=== PATIENT | female | born 1990 | race Caucasian/White ===

== ENCOUNTER 2018-06-18 22:25 | Emergency (ER) | payer BC ==
[2018-06-18 22:30] VITALS: RESP 18
[2018-06-18] MEDS ORDERED: LIDOCAINE 1% INJ 10MG/ML (20 ML MDV) SQ ONE (23:43)
[2018-06-18] MEDS ORDERED: DIPH,PERTUS(ACELL)TETVAC-LF 0.5 ML VIAL IM ONE (23:43)
--- NOTE | 2018-06-19 01:00 | ED ---
Wound/Laceration HPI - General Chief Complaint: Wound/Laceration Stated Complaint: finger lac Time Seen by Provider: 06/18/18 23:28 Source: patient Mode of arrival: ambulatory Limitations: no limitations - History of Present Illness Initial Comments: 27-year-old female patient presents to the emergency department today for evaluation of laceration to the left finger. Patient states approximately 30 minutes prior to arrival she broke a wine glass went to pick it up without looking and accidentally cut her finger. She denies any numbness or tingling to the finger. Denies any difficulty with range of motion. Patient is unsure when her last tetanus vaccine was given. Denies any other injuries. Patient denies any headache, neck pain, back pain, chest pain, shortness of breath, dizziness, weakness, abdominal pain, nausea, vomiting, or difficulties with bowel movements or urination. - Related Data Home Medications Medication Instructions Recorded Confirmed Norgestimate-Ethinyl Estradiol 1 tab PO DAILY 02/16/16 02/18/16 [Ortho Tri-Cyclen 28 Tablet] Previous Rx's Medication Instructions Recorded Ibuprofen [Motrin] 600 mg PO Q6HR PRN #60 tab 09/29/14 Acetaminophen-Codeine 300-30mg 1 tab PO Q4H PRN #30 tablet 02/18/16 [Tylenol #3] Allergies Allergy/AdvReac Type Severity Reaction Status Date / Time No Known Allergies Allergy Verified 06/18/18 22:30 Review of Systems ROS Statement: Those systems with pertinent positive or pertinent negative responses have been documented in the HPI. ROS Other: All systems not noted in ROS Statement are negative. Past Medical History Past Medical History: No Reported History Additional Past Medical History / Comment(s): Ovarian cysts History of Any Multi-Drug Resistant Organisms: None Reported Past Surgical History: Orthopedic Surgery Additional Past Surgical History / Comment(s): LAPAROTOMY, with evacuation of hemoperitoneum and repair of right ovary in September 2014 Past Anesthesia/Blood Transfusion Reactions: Motion Sickness, Postoperative Nausea & Vomiting (PONV) Past Psychological History: No Psychological Hx Reported Smoking Status: Current every day smoker Past Alcohol Use History: Occasional Past Drug Use History: None Reported - Past Family History Father Family Medical History: No Reported History Mother Family Medical History: No Reported History General Exam Limitations: no limitations General appearance: alert, in no apparent distress, other (This is a well- developed, well-nourished adult female patient in no acute distress. Vital signs upon presentation are temperature 97.7F, pulse 74, respirations 18, blood pressure 178/62, pulse ox 99% on room air.) Eye exam: Present: normal appearance, PERRL, EOMI. Absent: scleral icterus, conjunctival injection, periorbital swelling ENT exam: Present: normal exam, normal oropharynx, mucous membranes moist Respiratory exam: Present: normal lung sounds bilaterally. Absent: respiratory distress, wheezes, rales, rhonchi, stridor Cardiovascular Exam: Present: regular rate, normal rhythm, normal heart sounds. Absent: systolic murmur, diastolic murmur, rubs, gallop, clicks Extremities exam: Present: full ROM (Full range of motion of the left little finger with an without resistance), normal capillary refill, other (There is a 2 cm laceration noted to the palmar aspect of the distal left little finger, this extends into the left lateral little finger. No evidence of tendon exposure. Skin is otherwise pink, warm, and dry. Cap refills less than 3 seconds. Radial pulses 2+ and equal bilaterally.). Absent: normal inspection, tenderness, pedal edema, joint swelling, calf tenderness Neurological exam: Present: alert, oriented X3, CN II-XII intact Psychiatric exam: Present: normal affect, normal mood Skin exam: Present: warm, dry, intact, normal color. Absent: rash Course Vital Signs 06/18/18 06/19/18 22:28 01:12 Temperature 97.7 F 98.0 F Pulse Rate 74 58 L Respiratory 18 18 Rate Blood Pressure 128/62 112/64 O2 Sat by Pulse 99 98 Oximetry Procedures - Laceration Laceration #1 Consent Obtained: verbal consent Time Out Performed: Yes Indication: laceration Site: hand (Left little finger) Size (cm): 2 Description: linear Depth: simple, single layer Anesthetic Used: lidocaine 1% Anesthesia Technique: nerve block Amount (mls): 3 Pre-repair: irrigated extensively Type of Sutures: nylon Size of Sutures: 5-0 Number of Sutures: 5 Technique: simple, interrupted Medical Decision Making - Medical Decision Making 27-year-old female patient presented to the emergency department today for evaluation of laceration to the left little finger. Physical examination did reveal a 2 cm laceration to the palmar aspect of the left distal little finger that extended onto the lateral finger. Patient has full range of motion against resistance. Neurovascular status is intact. Laceration was repaired as documented. Laceration was irrigated extensively there is no sign of foreign body. Patient was instructed to return in 7 days for suture removal. She is instructed to follow-up with her primary care physician for recheck in 1- 2 days. She is instructed to follow-up with orthopedics if she begins to have difficulty with mobility of the finger. She was educated regarding wound care and signs or symptoms of infection. Return parameters were discussed in detail. She verbalizes understanding and agrees with this plan. - Lab Data Lab Results 06/18/18 Range/Units 23:51 Urine HCG, Qual Not Detected (Not Detectd) Disposition Clinical Impression: Finger laceration Disposition: HOME SELF-CARE Condition: Good Instructions: Care For Your Stitches (ED), Finger Laceration (ED) Additional Instructions: Keep wound clean and dry. Return in 7 days for removal of stitches. Monitor for signs or symptoms of infection including but not limited to redness, swelling, drainage of pus, fever, or chills. Use splint while working. Keep open to air while at home and resting. Follow-up with orthopedics if you start to have trouble with mobility. Return here immediately for any new, worsening, or concerning symptoms. Is patient prescribed a controlled substance at d/c from ED?: No Referrals: None,Stated [Primary Care Provider] - 1-2 days Elian Zuniga DO [Doctor of Osteopathic Medicine] - 1-2 days Time of Disposition: 01:00
[2018-06-19 01:14] VITALS: BP 112/64; PULSE 58; TEMP 98
== END 2018-06-19 01:13 | disposition home or self-care (01) ==
LOC: EC 22:25
DX: S61.217A Laceration without foreign body of left little finger without damage to nail, initial encounter (principal); F17.200 Nicotine dependence, unspecified, uncomplicated; Z23 Encounter for immunization; Z79.3 Long term (current) use of hormonal contraceptives; W25.XXXA Contact with sharp glass, initial encounter
CPT/HCPCS: 81025; 90715; 99283; 12001; 90471; J2001

== ENCOUNTER → 2018-11-14 | Outpatient (CLI) | payer BC ==
[2018-11-14 09:27] LABS: HCT 38.7 % (34.0-46.0); HGB 13.2 gm/dL (11.4-16.0); MCH 31.3 pg (25.0-35.0); MCHC 34.1 g/dL (31.0-37.0); MCV 91.8 fL (80.0-100.0); Mean Platelet Volume 7.5; Platelet Count 236 k/uL (150-450); RBC 4.22 m/uL (3.80-5.40); RDW 12.3 % (11.5-15.5); WBC 8.6 k/uL (3.8-10.6)
[2018-11-14 09:42] LABS: Glucose 64 mg/dL (74-99)
--- NOTE | 2018-11-14 16:37 | US ---
EXAMINATION TYPE: Transabdominal DATE OF EXAM: 01/22/18 COMPARISON: NONE CLINICAL HISTORY: Z36 CONFIRM DATES. Dates, first ultrasound for this . Hx of miscarriage. EXAM PERFORMED: Transvaginal (TV) and Transabdominal (TA) EXAM MEASUREMENTS: GESTATIONAL AGE / DATING Dates by LMP: ( 7 weeks/4 days) EDC: 06/29/2019 Dates by Current Scan: (7 weeks/2 days) EDC: 07/01/2019 MATERNAL ANATOMY Uterus: 7.8 x 7.2 x 5.0 cm Right Ovary: 3.8 x 2.8 x 3.2 cm Left Ovary: 3.6 x 2.3 x 2.4 cm Post CDS / Adnexa: no free fluid, prominent vessels seen Presence of free fluid: no Presence of corpus luteal cyst: bilateral ovarian lesions identified. Right ovary- Hypoechoic lesion with through transmission - 2.5 x 2.1 x 1.8 cm. Left ovary- Hypoechoic lesion seen with peripheral vascular flow - 2.2 x 2.0 x 1.8 cm Presence of subchorionic bleed: hypoechoic area seen in fundal region - 1.8 x 2.3 x 0.4 cm GESTATION / SURVEY CRL: 1.2 cm (7 weeks/2 days) MSD: seen, not measured Yolk Sac (normal less than 6mm): 2.7 mm Heart Rate: 151 bpm Rhythm: Normal IUP: Viable IUP Date of LMP: 09/22/2018, Beta HcG (if available): Not available at this time Single live IUP measuring 7 weeks 2 days. Visible internal echos seen within gestational sac. IMPRESSION: 1. Single intrauterine gestation estimated at 7 weeks 2 days gestation. Cardiac activity measures 151 bpm. 2. Subchorionic hemorrhage
[2018-11-14 18:17] LABS: HIV 1 AB Non-Reactive (Non-Reactive); HIV AB P24 Non-Reactive (Non-Reactive); HIV P24 AG Non-Reactive (Non-Reactive)
[2018-11-15 07:13] LABS: Toxoplasma Antibody (IgG) <3.0 IU/mL (<7.2); Toxoplasma Antibody (IgM) <3.0 AU/mL (<8.0)
== END | disposition home or self-care (01) ==
LOC: RADUSWWP 08:09
PROVIDERS: ATTEND Obstetrics & Gynecology
DX: O46.8X1 Other antepartum hemorrhage, first trimester (principal); Z3A.01 Less than 8 weeks gestation of pregnancy
CPT/HCPCS: 76801; 76817; 82565; 82947; 85027; 86762; 86777; 86778; 86780; 86850; 86900; 86901; 87340; 87390

== ENCOUNTER 2019-05-14 14:39 | Inpatient (IN) | payer BC ==
[2019-05-14] MEDS: LACTATED RINGERS 1,000 ML IV SCH ×5 (15:30→19:28)
[2019-05-14 15:52] LABS: Appearance,Urine Cloudy (Clear); Bacteria,Urine Occasional /hpf; Bilirubin,Urine Negative (Negative); Blood,Urine Negative (Negative); Color,Urine Yellow; Glucose,Urine (UA) Negative (Negative); Ketones,Urine Trace (Negative); Leukocyte Esterase,Urine Large (Negative); Mucus,Urine Moderate /hpf; Nitrite,Urine Positive (Negative); Protein,Urine 1+ (Negative); RBC,Urine 2 /hpf (0-5); Specific Gravity,Urine 1.022 (1.001-1.035); Squamous Epithelial Cell,Urine 4 /hpf (0-4); WBC,Urine 57 /hpf (0-5)
[2019-05-14] MEDS ORDERED: CALCIUM GLUCONATE 1 GM/10 ML VIAL IV PRN (17:01)
[2019-05-14] MEDS ORDERED: MAGNESIUM SULFATE-WATER PMX 4 GM in WATER FOR INJECTION 1 100ML.BAG IVPB ONE (17:01)
[2019-05-14] MEDS: BETAMET ACET-BETAMETH SOD PHOS 6 MG/ML VIAL IM SCH (17:05)
--- NOTE | 2019-05-14 17:08 | P.HPOB ---
History of Present Illness H&P Date: 05/14/19 Chief Complaint: Intrauterine at 33 weeks: labor: UTI Rosa M is a 20-year-old at 33 weeks 3 days gestation who ryes complaining of contractions and possible leaking of fluid. An Essure was negative, but she was dilated to 1 cm and 60% effaced. A fibrin once that and was positive. She continues to have contractions every approximately 3-5 minutes and while she is not made cervical change in the last hour she is continuing of crack contractions she is regular and 8 out of 10 on the pain scale and they seem to be increasing. We'll plan to provide IM steroids for lung maturity, start IV antibiotics for her bladder infection, and initiated make sulfate for tocolyse this. Risks/benefits of above were reviewed with patient in detail including risks of next sulfate and symptoms of what mag sulfate can do. She is aware risks including mag toxicity potential difficulty in breathing and potential need for transfer of care as she is only 33 weeks and should we failed to stop her labor she'll need to be transferred. Plan will be to do a mag level in 8-10 hours and discontinued medication as soon as feasible. Plan to repeat steroid dose in 24 hours as well. 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 On physical exam vital signs are stable and afebrile. Heart regular, lungs clear, extremities without pain. Abdomen soft nontender. A category 1 tracing is noted and contractions are noted every 3-5 minutes. Pelvic exam as above. Pike assessment intrauterine at 33 weeks. Plan tocolyse this, I am steroids and possible transfer of care if needed. Past Medical History Past Medical History: No Reported History Additional Past Medical History / Comment(s): Ovarian cysts History of Any Multi-Drug Resistant Organisms: None Reported Past Surgical History: Orthopedic Surgery Additional Past Surgical History / Comment(s): LAPAROTOMY, with evacuation of hemoperitoneum and repair of right ovary in September 2014 Past Anesthesia/Blood Transfusion Reactions: Motion Sickness, Postoperative Nausea & Vomiting (PONV) Smoking Status: Never smoker - Past Family History Father Family Medical History: No Reported History Mother Family Medical History: No Reported History Medications and Allergies Home Medications Medication Instructions Recorded Confirmed Type Pnv No.95/Ferrous Fum/Folic AC 1 tab PO DAILY 05/14/19 05/14/19 History [ Multivitamin Tablet] Allergies Allergy/AdvReac Type Severity Reaction Status Date / Time No Known Allergies Allergy Verified 06/18/18 22:30 Exam Osteopathic Statement: *. No significant issues noted on an osteopathic structural exam other than those noted in the History and Physical/Consult. Vital Signs Temp Pulse Resp BP 05/14/19 15:20 97.9 F 94 14 116/66 Intake and Output 05/14/19 05/14/19 05/14/19 06:59 14:59 22:59 Other: Weight 72.575 kg Results Abnormal Lab Results - Last 24 Hours (Table) 05/14/19 Range/Units 15:23 Urine Appearance Cloudy H (Clear) Urine Protein 1+ H (Negative) Urine Ketones Trace H (Negative) Urine Nitrite Positive H (Negative) Ur Leukocyte Esterase Large H (Negative) Urine WBC 57 H (0-5) /hpf Urine Bacteria Occasional H (None) /hpf Urine Mucus Moderate H (None) /hpf
[2019-05-14] MEDS: MAGNESIUM SULFATE-WATER PMX 20 GM in WATER FOR INJECTION 1 500ML.BAG IV SCH (17:43)
[2019-05-14 18:28] VITALS: BMI 22.9
[2019-05-14] MEDS ORDERED: ACETAMINOPHEN TAB 500 MG TAB PO PRN (22:20)
[2019-05-14] MEDS ORDERED: BUTORPHANOL 1 MG/ML 1 ML VIAL IV PRN (22:20)
[2019-05-15] MEDS: MAGNESIUM SULFATE-WATER PMX 20 GM in WATER FOR INJECTION 1 500ML.BAG IV SCH (03:46)
--- NOTE | 2019-05-15 08:11 | P.PN ---
Progress Note - Text Progress Note Date: 05/15/19 Rosa M seen and evaluated. She relates that the contraction pain and symptoms have decreased significantly and have spaced out. She was able to get some rest last night. She is feeling the effects of an exophytic this morning indicating is likely a therapeutic level at this time. As contractions have spaced out and she is not taking any cervical change plan to decrease the mag sulfate to 1 g per hour with expectation to turned off later today and to try and get her second dose of Celestone and that hopefully discharge her to home later this evening if she is remaining stable. We'll review with Dr. Brown who is on-call for our group today. All the questions were answered for her she has category 1 tracing and contractions are anywhere from 8-10 minutes apart and are of less intensity.
[2019-05-15 16:10] VITALS: BP 101/61; PULSE 85; RESP 16; TEMP 98.2
[2019-05-15] MEDS: BETAMET ACET-BETAMETH SOD PHOS 6 MG/ML VIAL IM SCH (17:04)
== END 2019-05-15 17:15 | disposition home or self-care (01) | DRG 832 ==
LOC: FBPOP 14:39 → 4FBP 18:08
PROVIDERS: ADMIT Obstetrics & Gynecology; ATTEND Obstetrics & Gynecology
DX: O60.03 Preterm labor without delivery, third trimester (principal); O23.13 Infections of bladder in pregnancy, third trimester; Z3A.33 33 weeks gestation of pregnancy; Z79.899 Other long term (current) drug therapy
CPT/HCPCS: 59025; 81001; 82731; 83735; 84112; 87077; 87086; 87186; 96361; 96365; 99215

== ENCOUNTER 2019-06-05 13:26 | Outpatient (CLI) | payer BC ==
[2019-06-05 15:13] VITALS: BP 107/57; PULSE 80; RESP 16; TEMP 97.3
--- NOTE | 2019-06-05 18:59 | P.MSEPDOC ---
Presenting Problems - Arrival Data Date of Arrival on Unit: 06/05/19 Time of Arrival on Unit: 13:26 Mode of Transport: Ambulatory - Complaint OB-Reason for Admission/Chief Complaint: Possible Onset of Labor Medical History - Information : 3 Para: 1 Term: 0 : 0 Abortions: Spontaneous or Elective: 1 Number of Living Children: 1 - Gestational Age Gestational Age by PERLITA (wks/days): 36 Weeks and 4 Days Review of Systems - Review of Systems Constitutional: No problems Breast: No problems ENT: No problems Cardiovascular: No problems Respiratory: No problems Gastrointestinal: No problems Genitourinary: No problems Musculoskeletal: No problems Neurological: No problems Skin: No problems Vital Signs - Temperature Temperature: 97.3 F Temperature Source: Temporal Artery Scan - Pulse Right Sitting Pulse Rate: 80 Pulse Assessment Method: Automatic Cuff - Respirations Respiratory Rate: 16 Oxygen Delivery Method: Room Air - Blood Pressure Right Arm Blood Pressure: 107/57 Blood Pressure Mean: 73 Blood Pressure Source: Automatic Cuff Medical Screen Scoring (Pre) - Cervical Exam Dilation: 1-3 cm = 1 Membranes: Intact - Uterine Contractions Frequency: > or = 36 weeks =2 Duration: > 40 seconds = 2 - Maternal Vital Signs Maternal Temperature: N/A Maternal Blood Pressure: N/A Signs of Preeclampsia: N/A Maternal Respirations: N/A - Assessment - Baby A Baseline FHR: 135 Heart Rate - NICHD Category: Category I (Normal) = 0 NST: Reactive Position: N/A - Total Score - Baby A Total Score - Baby A: 5 - Total Score - Baby B Total Score - Baby B: 5 - Total Score - Baby C Total Score - Baby C: 5 - Level of Risk - Baby A Level of Risk - Baby A: Low (0-5) - Level of Risk - Baby B Level of Risk - Baby B: Low (0-5) - Level of Risk - Baby C Level of Risk - Baby C: Low (0-5) Physician Notification (Pre) - Physician Notified Physician Notified Date: 06/05/19 Physician Notified Time: 14:50 Physician/Practitioner Notifed:: Cheryl Billy Order Received: Yes (d/c home) Disposition - Disposition OB Disposition: Discharge to home Discharge Date: 06/05/19 Discharge Time: 14:52 I agree with the RN Medical Screening Exam: Yes Risk & Benefit of care provided described in d/c instruction: Yes Diagnosis: FALSE LABOR BEFORE 37 COMPLETED WEEKS OF GEST, THIRD TRI (Patient presented to triage with complaints of pelvic discomfort and pressure for approximately 1 week also had some contractions today after having intercourse. Patient is just over 36 weeks. Cervix is 1-2 cm without significant change from the office. heart tones are reactive without decelerations. Contractions are most likely secondary to her recent intercourse. Patient's felt to be stable for discharge home follow up with me as scheduled. She will return if any decreased movement, vaginal bleeding, increased frequency of contractions, and/or other concerns. There is no evidence of any maternal or compromise at this time.)
== END 2019-06-05 14:52 | disposition home or self-care (01) ==
LOC: FBPOP 13:26
PROVIDERS: ATTEND Obstetrics & Gynecology
DX: O47.03 False labor before 37 completed weeks of gestation, third trimester (principal); Z3A.36 36 weeks gestation of pregnancy
CPT/HCPCS: 59025; 99213

== ENCOUNTER 2019-06-07 11:10 | Outpatient (CLI) | payer BC ==
[2019-06-07 12:21] LABS: Appearance,Urine Clear (Clear); Bilirubin,Urine Negative (Negative); Blood,Urine Negative (Negative); Color,Urine Yellow; Glucose,Urine (UA) Negative (Negative); Ketones,Urine Trace (Negative); Leukocyte Esterase,Urine Negative (Negative); Nitrite,Urine Negative (Negative); PH, Urine 7.5 (5.0-8.0); Protein,Urine Negative (Negative); Specific Gravity,Urine 1.013 (1.001-1.035); Urobilinogen,Urine <2.0 mg/dL (<2.0)
[2019-06-07 12:46] VITALS: BP 124/66; PULSE 72; RESP 16; TEMP 97.7
--- NOTE | 2019-06-08 22:09 | P.MSEPDOC ---
Presenting Problems - Arrival Data Date of Arrival on Unit: 06/07/19 Time of Arrival on Unit: 11:10 Mode of Transport: Ambulatory - Complaint OB-Reason for Admission/Chief Complaint: Rule Out PROM Comment: Clear fluid at 0945 Medical History - Information : 3 Para: 1 Term: 1 : 0 Abortions: Spontaneous or Elective: 1 Number of Living Children: 1 - Gestational Age Gestational Age by PERLITA (wks/days): 36 Weeks and 6 Days Review of Systems - Review of Systems Constitutional: No problems Breast: No problems ENT: No problems Cardiovascular: No problems Respiratory: No problems Gastrointestinal: No problems Genitourinary: No problems Musculoskeletal: No problems Neurological: No problems Skin: No problems Vital Signs - Temperature Temperature: 97.7 F Temperature Source: Temporal Artery Scan - Pulse Right Sitting Brachial Pulse Rate: 72 Pulse Assessment Method: Automatic Cuff - Respirations Respiratory Rate: 16 Oxygen Delivery Method: Room Air O2 Sat by Pulse Oximetry: 97 - Blood Pressure Right Arm Sitting Blood Pressure: 124/66 Blood Pressure Mean: 85 Blood Pressure Source: Automatic Cuff Medical Screen Scoring (Pre) - Cervical Exam Dilation: 1-3 cm = 1 Membranes: Intact - Uterine Contractions Frequency: > 5 minutes apart = 1 Duration: N/A Intensity: N/A - Maternal Vital Signs Maternal Temperature: N/A Maternal Blood Pressure: N/A Signs of Preeclampsia: N/A Maternal Respirations: N/A - Maternal Trauma Maternal Trauma: N/A - Assessment - Baby A Baseline FHR: 120 Heart Rate - NICHD Category: Category I (Normal) = 0 NST: Reactive Position: N/A Station: N/A - Total Score - Baby A Total Score - Baby A: 2 - Total Score - Baby B Total Score - Baby B: 2 - Total Score - Baby C Total Score - Baby C: 2 - Level of Risk - Baby A Level of Risk - Baby A: Low (0-5) - Level of Risk - Baby B Level of Risk - Baby B: Low (0-5) - Level of Risk - Baby C Level of Risk - Baby C: Low (0-5) Physician Notification (Pre) - Physician Notified Physician Notified Date: 06/07/19 Physician Notified Time: 12:30 Physician/Practitioner Notifed:: Allan Spoke With: Allan New Order Received: Yes - Notification Comment Comment: Aarti c\Dr. Lemus, advsd , 36 03/28, c/o possible SROM at 0945, suprapubic pressure, UA WNL with the exception of trace Ketones, two negative amnisures, blue pad dry, reactive NST, washcloth pt had between legs smells of urine and verified by second nurse. States to d/c home, triage instructions, follow up as scheduled. Disposition - Disposition OB Disposition: Discharge to home, Written follow up instructions reviewed Discharge Date: 06/07/19 Discharge Time: 12:35 I agree with the RN Medical Screening Exam: Yes Risk & Benefit of care provided described in d/c instruction: Yes Diagnosis: FALSE LABOR AT OR AFTER 37 COMPLETED WEEKS OF GESTATION
== END 2019-06-07 12:35 | disposition home or self-care (01) ==
LOC: FBPOP 11:10
PROVIDERS: ATTEND Obstetrics & Gynecology
DX: O47.1 False labor at or after 37 completed weeks of gestation (principal); Z3A.36 36 weeks gestation of pregnancy
CPT/HCPCS: 59025; 81003; 84112; 99213

== ENCOUNTER 2019-06-11 15:22 | Outpatient (CLI) | payer BC ==
--- NOTE | 2019-06-11 16:31 | US ---
EXAMINATION TYPE: US OB limited DATE OF EXAM: 06/11/2019 COMPARISON: OB < 14 wks CLINICAL HISTORY: STAN. STAN, pt states feeling of leaking fluid EXAM PERFORMED: Transabdominal (TA) GESTATIONAL AGE / DATING Physician Established: (37 weeks/3 days) EDC: 06/29/2019 No growth performed on today?s study per ordering physician SURVEY STAN: 10.6 cm 1st measurement, 9.8 cm 2nd measurement HEART RATE: 116 bpm RHYTHM: Normal Results given to TEE Willingham in L&D at time of exam IMPRESSION: Limited survey.
[2019-06-11 16:50] VITALS: BP 107/55; PULSE 86; RESP 14; TEMP 98.1
--- NOTE | 2019-07-03 17:42 | P.MSEPDOC ---
Presenting Problems - Arrival Data Date of Arrival on Unit: 06/11/19 Time of Arrival on Unit: 15:30 Mode of Transport: Portable Vital Signs - Temperature Temperature: 98.1 F Temperature Source: Oral - Pulse Right Brachial Pulse Rate: 86 Pulse Assessment Method: Automatic Cuff - Respirations Respiratory Rate: 14 Oxygen Delivery Method: Room Air - Blood Pressure Right Arm Blood Pressure: 107/55 Blood Pressure Mean: 72 Blood Pressure Source: Automatic Cuff Medical Screen Scoring (Post) - Cervical Exam Dilation: 1-3 cm = 1 - Uterine Contractions Frequency: N/A Duration: N/A Intensity: N/A - Maternal Vital Signs Maternal Temperature: N/A Maternal Blood Pressure: N/A Signs of Preeclampsia: N/A Maternal Respirations: N/A - Pain Assessment Pain Scale Used: Numeric (1 - 10) Pain Intensity: 0 - Maternal Trauma Maternal Trauma: N/A - Assessment - Baby A Heart Rate: 135 Heart Rate - NICHD Category: Category I (Normal) = 0 NST: Reactive Position: N/A Station: N/A - Total Score Total Score - Baby A: 1 Total Score - Baby B: 1 Total Score - Baby C: 1 - Post Treatment Level of Risk Post Treatment Level of Risk - Baby A: Low (0-5) Post Treatment Level of Risk - Baby B: Low (0-5) Post Treatment Level of Risk - Baby C: Low (0-5) Physician Notification (Post) - Physician Notified Physician Notified Date: 06/11/19 Physician Notified Time: 16:24 Physician/Practitioner Notified:: radha Spoke With: radha New Order Received: Yes - Notification Comment Comment: pt sent from office for nst and hayde r/t pt reporting leaking of fluid. nst reactive, hayde 9.8-10.8 amnisure negative . pt may be discharged home Disposition - Disposition OB Disposition: Discharge to home Discharge Date: 06/11/19 Discharge Time: 16:50 I agree with the RN Medical Screening Exam: No Physician's MSE Comment: There is incomplete documentation on this by nursing staff and therefore cannot agree to it. Risk & Benefit of care provided described in d/c instruction: No Diagnosis: RELATED CONDITIONS, UNSP, UNSPECIFIED TRIMESTER
== END 2019-06-11 16:51 | disposition home or self-care (01) ==
LOC: FBPOP 15:22
PROVIDERS: ATTEND Obstetrics & Gynecology
DX: O26.93 Pregnancy related conditions, unspecified, third trimester (principal); Z3A.37 37 weeks gestation of pregnancy
CPT/HCPCS: 59025; 76815; 84112; 99213

== ENCOUNTER 2019-06-15 20:17 | Outpatient (CLI) | payer BC ==
[2019-06-15 21:47] VITALS: BP 122/72; PULSE 94; RESP 16; TEMP 97.9
--- NOTE | 2019-06-25 07:48 | P.MSEPDOC ---
Presenting Problems - Arrival Data Date of Arrival on Unit: 06/15/19 Time of Arrival on Unit: 20:17 Mode of Transport: Ambulatory - Complaint OB-Reason for Admission/Chief Complaint: Possible Onset of Labor Comment: Pt claims contractions are 1-2 mins apart Medical History - Information : 3 Para: 1 Term: 1 : 0 Abortions: Spontaneous or Elective: 1 Number of Living Children: 1 - Gestational Age Gestational Age by PERLITA (wks/days): 38 Weeks and 0 Days Review of Systems - Review of Systems Constitutional: No problems Breast: No problems ENT: No problems Cardiovascular: No problems Respiratory: No problems Gastrointestinal: No problems Genitourinary: No problems Musculoskeletal: No problems Neurological: No problems Skin: No problems Vital Signs - Temperature Temperature: 97.9 F Temperature Source: Temporal Artery Scan - Pulse Right Pulse Oximetery Pulse Rate: 94 Pulse Assessment Method: Pulse Oximetry - Respirations Respiratory Rate: 16 Oxygen Delivery Method: Room Air O2 Sat by Pulse Oximetry: 98 - Blood Pressure Right Arm Blood Pressure: 122/72 Blood Pressure Mean: 88 Blood Pressure Source: Automatic Cuff Medical Screen Scoring (Pre) - Cervical Exam Dilation: 1-3 cm = 1 Membranes: Intact - Uterine Contractions Frequency: > or = 36 weeks =2 Duration: > 40 seconds = 2 Intensity: N/A - Maternal Vital Signs Maternal Temperature: N/A Maternal Blood Pressure: N/A Signs of Preeclampsia: N/A Maternal Respirations: N/A - Maternal Trauma Maternal Trauma: N/A - Assessment - Baby A Baseline FHR: 135 Heart Rate - NICHD Category: Category I (Normal) = 0 NST: Reactive Position: N/A Station: N/A - Total Score - Baby A Total Score - Baby A: 5 - Total Score - Baby B Total Score - Baby B: 5 - Total Score - Baby C Total Score - Baby C: 5 - Level of Risk - Baby A Level of Risk - Baby A: Low (0-5) - Level of Risk - Baby B Level of Risk - Baby B: Low (0-5) - Level of Risk - Baby C Level of Risk - Baby C: Low (0-5) Physician Notification (Pre) - Physician Notified Physician Notified Date: 06/15/19 Physician Notified Time: 21:30 Physician/Practitioner Notifed:: Dr. Brown Spoke With: Dr. Brown New Order Received: Yes (discharge) - Notification Comment Comment: Report given on maternal/ status, reactive NST, contractions 2- 5mins apart and irregular. Sterile vag exam 3/50%, no change in 1 hour Disposition - Disposition OB Disposition: Discharge to home Discharge Date: 06/15/19 Discharge Time: 21:35 I agree with the RN Medical Screening Exam: Yes Risk & Benefit of care provided described in d/c instruction: Yes Diagnosis: FALSE LABOR AT OR AFTER 37 COMPLETED WEEKS OF GESTATION
== END 2019-06-15 21:35 | disposition home or self-care (01) ==
LOC: FBPOP 20:17
PROVIDERS: ATTEND Obstetrics & Gynecology
DX: O47.1 False labor at or after 37 completed weeks of gestation (principal); Z3A.38 38 weeks gestation of pregnancy
CPT/HCPCS: 59025; 99213

== ENCOUNTER 2019-06-24 05:51 | Inpatient (IN) | payer BC ==
[2019-06-24] MEDS ORDERED: TERBUTALINE 1 MG/ML VIAL SQ PRN (05:59)
[2019-06-24] MEDS ORDERED: OXYTOCIN 10 UNIT/ML 1 ML VIAL IM PRN (05:59)
[2019-06-24] MEDS ORDERED: LIDOCAINE 0.5% (PF) 5 MG/ML (50 ML SDV) SQ PRN (05:59)
[2019-06-24] MEDS ORDERED: METHYLERGONOVINE 0.2 MG/ML 1 ML AMP IM PRN (05:59)
[2019-06-24] MEDS ORDERED: LACTATED RINGERS 1,000 ML IV SCH (05:59)
[2019-06-24] MEDS ORDERED: OXYTOCIN 30 UNITS/500 ML NS 30 UNIT in SALINE 1 500ML.BAG IV SCH (05:59)
[2019-06-24] MEDS ORDERED: CARBOPROST TROMETHAMINE 250 MCG/ML 1 ML AMP IM PRN (05:59)
[2019-06-24 06:07] VITALS: BMI 56.2
--- NOTE | 2019-06-24 06:14 | P.HPOB ---
History of Present Illness H&P Date: 06/24/19 Chief Complaint: Requested induction of labor. This patient is a pleasant 28-year-old 3 para 1 female estimated date of confinement 06/29/2019 estimated gestational age 39-2/7 weeks who presents to labor and delivery for requested induction of labor due to maternal discomfort. Patient's care has been uncomplicated although she did have an admission for contractions with a positive fibronectin at 34 weeks. Patient was given Celestone at that time however she never went into labor. care also was complicated by an EIF which was noted at her 19 week ultrasound however she was referred to maternal- medicine and evaluation was negative. Review of Systems Gastrointestinal: Reports heartburn Genitourinary: Reports Menstruation: Reports amenorrhea Past Medical History Past Medical History: No Reported History Additional Past Medical History / Comment(s): Ovarian cysts History of Any Multi-Drug Resistant Organisms: None Reported Past Surgical History: Orthopedic Surgery Additional Past Surgical History / Comment(s): LAPAROTOMY, with evacuation of hemoperitoneum and repair of right ovary in September 2014 Past Anesthesia/Blood Transfusion Reactions: Motion Sickness, Postoperative Nausea & Vomiting (PONV) Past Psychological History: No Psychological Hx Reported Smoking Status: Never smoker Past Alcohol Use History: Occasional Additional Past Alcohol Use History / Comment(s): STARTED SMOKING AT AGE 23 QUIT IN DECEMBER 2015, SMOKED LESS THAN 1 1/2 PACK PER WEEK Past Drug Use History: None Reported - Past Family History Father Family Medical History: No Reported History Mother Family Medical History: No Reported History Medications and Allergies Home Medications Medication Instructions Recorded Confirmed Type Pnv No.95/Ferrous Fum/Folic AC 1 tab PO DAILY 05/14/19 06/24/19 History [ Multivitamin Tablet] Allergies Allergy/AdvReac Type Severity Reaction Status Date / Time No Known Allergies Allergy Verified 06/24/19 06:00 Exam Vital Signs Temp Pulse Resp BP Pulse Ox 06/24/19 05:59 96.7 F L 110 H 16 103/66 98 Intake and Output 06/23/19 06/23/19 06/24/19 14:59 22:59 06:59 Other: Weight 76.204 kg - OBG Physical Exam Abdomen: bowel sounds normal, no diffuse tenderness, no bruit present, no guarding noted, no hepatomegaly, no splenomegaly, no mass Vulva: both: normal Vagina: normal moisture, no discharge Cervix: no lesion (Cervix the office was 2 cm dilated), no discharge Uterus: enlarged (Fundal height is consistent with gestational age) Results blood work shows she is O positive, rubella indeterminate, hepatitis B negative, HIV nonreactive, RPR is nonreactive, Glucola was normal, group B strep was negative, anatomy ultrasounds showed an EIF which was referred to maternal- medicine she had a normal level III. Assessment and Plan Assessment: This is a pleasant 28-year-old 3 para 1 female 39-2/7 weeks gestation admitted to labor and delivery for requested induction of labor. Plan is induction of labor and anticipate vaginal delivery. (1) 39 weeks gestation of Current Visit: Yes Status: Acute Code(s): Z3A.39 - 39 WEEKS GESTATION OF SNOMED Code(s): 13033989 (2) Elective induction of labor planned Current Visit: Yes Status: Acute Code(s): UEB1161 - SNOMED Code(s): 336359813
[2019-06-24 06:23] LABS: Basophils % (A) 0 %; Eosinophils # (A) 0.1 k/uL (0-0.7); Eosinophils % (A) 1 %; HCT 36.3 % (34.0-46.0); HGB 12.2 gm/dL (11.4-16.0); Lymphocytes # (A) 2.3 k/uL (1.0-4.8); Lymphocytes % (A) 21 %; MCHC 33.7 g/dL (31.0-37.0); MCV 83.1 fL (80.0-100.0); Mean Platelet Volume 7.6; Monocytes # (A) 0.6 k/uL (0-1.0); Monocytes % (A) 5 %; Neutrophils # (A) 7.9 k/uL (1.3-7.7); Neutrophils % (A) 72 %; Platelet Count 301 k/uL (150-450); RBC 4.37 m/uL (3.80-5.40); RDW 14.1 % (11.5-15.5)
[2019-06-24] MEDS ORDERED: BENZOCAINE/MENTHOL SPRAY 1 GM/SPRAY AEROSOL TOPICAL PRN (09:53)
[2019-06-24] MEDS ORDERED: LANOLIN CREAM 5 GM TUBE TOPICAL PRN (09:53)
[2019-06-24] MEDS ORDERED: ACETAMINOPHEN TAB 325 MG TAB PO PRN (09:53)
[2019-06-24] MEDS ORDERED: WITCH HAZEL 1 EACH MED..PAD TOPICAL PRN (09:53)
[2019-06-24] MEDS ORDERED: ZOLPIDEM 5 MG TAB PO PRN (09:53)
[2019-06-24] MEDS ORDERED: diphenhydrAMINE 25 MG CAP PO PRN (09:53)
[2019-06-24] MEDS ORDERED: SIMETHICONE 80 MG CHEWABLE PO PRN (09:53)
[2019-06-24] MEDS ORDERED: BISACODYL 10 MG SUPP RECTAL PRN (09:53)
[2019-06-24] MEDS ORDERED: MEASLES-MUMPS-RUBELLA VACC/PF 12,500 UNIT/0.5 ML VIAL SQ ONE (09:53)
[2019-06-24] MEDS ORDERED: OXYTOCIN 20 UNITS/1000 ML NS 1,000 ML IV SCH (09:53)
[2019-06-24] MEDS ORDERED: diphenhydrAMINE 50 MG/ML 1 ML VIAL IVP PRN (09:53)
[2019-06-24] MEDS ORDERED: HYDROCORTISONE 2.5% RECTAL CREAM 30 GM TUBE RECTAL PRN (09:53)
[2019-06-24] MEDS: IBUPROFEN 600 MG TAB PO PRN (10:08)
[2019-06-24] MEDS: SENNOSIDES-DOCUSATE SODIUM 1 EACH TAB PO SCH ×2 (11:10→20:08)
--- NOTE | 2019-06-24 19:16 | P.PROBDLV ---
Vaginal Delivery Note - . Vaginal Delivery Note: Normal vaginal delivery viable female Apgars 8 and 9 delivery time was 0935 hours. Please see dictated H&P for intimate details of this patient's admission. Brief summary this is a pleasant 28-year-old 3 para 1 female estimated gestational age 39-2/7 weeks who is admitted to labor and delivery for requested induction of labor. Patient is artificial rupture membranes at 2-3 cm dilated for clear fluid. Labor is induced with Pitocin per protocol. Patient does not request anything for pain control. Patient's labor progresses quite quickly she gets to complete. Pushes the head to the perineum and the posterior perineum was supported. We have controlled delivery of infant's head over the intact perineum. Mouth and nares are bulb suctioned and there is no evidence of a nuchal cord. With gentle downward traction within delivery the anterior and posterior shoulder and rest this 's body. This is a vigorous viable female infant Apgars are 8 and 9 delivery time was 0935 hours. After delivery of the the umbilical cord is allowed to stop pulsating is then doubly clamped and cut. It appears to be trivascular. Sent is then spontaneously delivered intact. There is some mild uterine atony which responded to uterine massage and I did give her 1 dose of Methergine. Estimated blood loss is about 200 mL. There is no lacerations and no repairs required. All counts correct 3. There are no complications. Infant and mother stable delivery room.
[2019-06-24 22:50] VITALS: RESP 18
[2019-06-25] MEDS: IBUPROFEN 600 MG TAB PO PRN ×2 (06:06→11:46)
--- NOTE | 2019-06-25 06:16 | P.PNOBGVD ---
Subjective - Subjective Patient reports: Reports appetite normal, Reports voiding normally, Reports pain well controlled, Reports ambulating normally : doing well Objective - Latest Vital Signs Latest vital signs: Vital Signs Temp Pulse Resp BP Pulse Ox 06/24/19 22:49 98 F 70 18 109/55 98 06/24/19 16:00 97.7 F 85 16 127/61 06/24/19 12:00 97.8 F 60 16 104/57 06/24/19 11:50 97.8 F 56 L 16 103/61 06/24/19 11:20 62 16 106/65 06/24/19 10:50 75 16 105/62 06/24/19 10:35 74 16 109/64 06/24/19 10:20 80 16 102/57 06/24/19 10:05 79 16 106/59 06/24/19 09:50 98.1 F 75 16 108/62 Intake and Output 06/24/19 06/24/19 06/25/19 14:59 22:59 06:59 Intake Total 499.5 Output Total 200 Balance 299.5 Intake: Intake, IV Titration 499.5 Amount Oxytocin 20 Units/1000 ml 499.5 Ns 1,000 ml @ Per Protocol IV .Q0M BRICE Rx#: [id number] Output: Estimated Blood Loss 200 Other: # Voids 1 1 - Exam Lungs: bilateral: normal Chest: Normal S1, Normal S2 Extremities: Present: normal Abdomen: Present: normal appearance, soft Uterus: Present: normal, firm - Labs Labs: Abnormal Lab Results - Last 24 Hours (Table) 06/24/19 Range/Units 06:12 WBC 11.0 H (3.8-10.6) k/uL Neutrophils # 7.9 H (1.3-7.7) k/uL Assessment and Plan Assessment: day #1. Patient is resting without complaints and wishes to go home. Vital signs are stable she is afebrile. Uterus is firm nontender she's having normal lochia. Plan today is to continue routine care discharge home later today. (1) 39 weeks gestation of Current Visit: Yes Status: Acute Code(s): Z3A.39 - 39 WEEKS GESTATION OF SNOMED Code(s): 86353877 (2) Elective induction of labor planned Current Visit: Yes Status: Acute Code(s): PIR6947 - SNOMED Code(s): 027344566
--- NOTE | 2019-06-25 06:21 | P.DS ---
Providers Date of admission: 06/24/19 05:51 Expected date of discharge: 06/25/19 Attending physician: Boone Luna Primary care physician: Stated None - Discharge Diagnosis(es) (1) 39 weeks gestation of Current Visit: Yes Status: Acute (2) Elective induction of labor planned Current Visit: Yes Status: Acute Hospital Course: Please see dictated H&P for intimate details of this patient's admission. Brief summary this is a pleasant 28-year-old 3 para 1 female 39-2/7 weeks who presents to labor and delivery for induction of labor. Patient's admitting quickly goes on have a vaginal delivery viable female . Please see dictated delivery note. day #1 this patient is without complaints and wishes to go home. Patient's felt be stable for discharge home follow up with me in 6 weeks Procedures: Induction of labor and normal vaginal delivery Patient Condition at Discharge: Good Plan - Discharge Summary New Discharge Prescriptions: New Ibuprofen [Motrin] 600 mg PO Q6HR PRN #40 tab PRN Reason: Mild Pain Or Fever >= 100.5 No Action Pnv No.95/Ferrous Fum/Folic AC [ Multivitamin Tablet] 1 tab PO DAILY Discharge Medication List Pnv No.95/Ferrous Fum/Folic AC [ Multivitamin Tablet] 1 tab PO DAILY 05/14/19 [History] Ibuprofen [Motrin] 600 mg PO Q6HR PRN #40 tab 06/25/19 [Rx] Follow up Appointment(s)/Referral(s): Boone Luna MD [STAFF PHYSICIAN] - 08/06/19 10:45 am Patient Instructions/Handouts: Vaginal Delivery (DC) Activity/Diet/Wound Care/Special Instructions: No intercourse or anything per vagina for 6 weeks. Please call if any fever, chills, excessive vaginal bleeding, and/or abdominal pain. Discharge Disposition: HOME SELF-CARE
[2019-06-25 08:13] VITALS: BP 105/61; PULSE 65; TEMP 98.2
== END 2019-06-25 11:52 | disposition home or self-care (01) | DRG 807 ==
LOC: 4FBP 05:51
PROVIDERS: ADMIT Obstetrics & Gynecology; ATTEND Obstetrics & Gynecology
PROC: 3E0134Z Introduction of Serum, Toxoid and Vaccine into Subcutaneous Tissue, Percutaneous Approach (ICD-10-PCS; principal; 2019-06-24)
PROC: 10907ZC Drainage of Amniotic Fluid, Therapeutic from Products of Conception, Via Natural or Artificial Opening (ICD-10-PCS; principal; 2019-06-24)
PROC: 10E0XZZ Delivery of Products of Conception, External Approach (ICD-10-PCS; principal; 2019-06-24)
PROC: 3E033VJ Introduction of Other Hormone into Peripheral Vein, Percutaneous Approach (ICD-10-PCS; principal; 2019-06-24)
DX: O26.893 Other specified pregnancy related conditions, third trimester (principal); Z37.0 Single live birth; O62.2 Other uterine inertia; Z23 Encounter for immunization; Z3A.39 39 weeks gestation of pregnancy; Z79.899 Other long term (current) drug therapy; Z98.890 Other specified postprocedural states; Z87.891 Personal history of nicotine dependence
CPT/HCPCS: 85025; 86850; 86900; 86901; 90471; 90707

== ENCOUNTER → 2021-01-10 | Outpatient (CLI) | payer BC | END | disposition home or self-care (01) | LOC: LABWHC1 17:13 | PROVIDERS: ATTEND Emergency Medicine | DX: Z20.822 Contact with and (suspected) exposure to COVID-19 (principal) | CPT/HCPCS: U0003; C9803 ==

== ENCOUNTER 2021-04-20 14:19 | Emergency (ER) | payer BC ==
--- NOTE | 2021-04-20 15:11 | ED ---
Abdominal Pain HPI - General Chief Complaint: Abdominal Pain Stated Complaint: ABD pain Time Seen by Provider: 04/20/21 15:10 Source: patient Mode of arrival: ambulatory Limitations: no limitations - History of Present Illness Initial Comments: Rosa M is a 30-year-old female currently 16 weeks gestation with a single intrauterine confirmed on outpatient ultrasound. She presents the ER today for evaluation of right-sided abdominal pain. Pain began after eating. Pain was burning in nature located in the right upper quadrant right lower quadrant. Pain was associated with nausea no vomiting. No change in bowel or bladder habits. She has followed with her beverage specialist in office, she has had a confirmed intrauterine single . She does not know the gender does not want to find out this time. - Related Data Home Medications Medication Instructions Recorded Confirmed Pnv No.95/Ferrous Fum/Folic AC 1 tab PO DAILY 05/14/19 04/20/21 [ Multivitamin Tablet] Allergies Allergy/AdvReac Type Severity Reaction Status Date / Time No Known Allergies Allergy Verified 04/20/21 15:46 Review of Systems ROS Statement: Those systems with pertinent positive or pertinent negative responses have been documented in the HPI. ROS Other: All systems not noted in ROS Statement are negative. Past Medical History Past Medical History: No Reported History Additional Past Medical History / Comment(s): Ovarian cysts History of Any Multi-Drug Resistant Organisms: None Reported Past Surgical History: Orthopedic Surgery Additional Past Surgical History / Comment(s): LAPAROTOMY, with evacuation of hemoperitoneum and repair of right ovary in September 2014 Past Anesthesia/Blood Transfusion Reactions: Motion Sickness, Postoperative Nausea & Vomiting (PONV) Past Psychological History: No Psychological Hx Reported Smoking Status: Never smoker Past Alcohol Use History: Occasional Past Drug Use History: None Reported - Past Family History Father Family Medical History: No Reported History Mother Family Medical History: No Reported History General Exam - General Exam Comments Initial Comments: Physical Exam GENERAL: Patient is well-developed and well-nourished. Patient is nontoxic and well-hydrated and is in no distress. HENT: Normocephalic, Atraumatic. EYES: PERRL, EOMI PULMONARY: Unlabored respirations. CARDIOVASCULAR: RRR Warm and well perfused extremities ABDOMEN: Mild tenderness to palpation in the right upper quadrant SKIN: No rashes or bruising : Deferred NEUROLOGIC: Alert and oriented Normal speech Normal gait MUSCULOSKELETAL: Moving all extremities with no apparent injury PSYCHIATRIC: No SI/HI Limitations: no limitations Course Vital Signs 04/20/21 04/20/21 14:35 17:14 Temperature 97.9 F 98 F Pulse Rate 69 60 Respiratory 16 18 Rate Blood Pressure 99/63 101/60 O2 Sat by Pulse 98 100 Oximetry Medical Decision Making - Medical Decision Making Patient was seen and evaluated history is obtained from patient Physical exam is relatively unremarkable Ultrasound and labs were obtained Labs unremarkable no significant acute abnormalities come ultrasound with no significant acute abnormalities, patient resting comfortably, bedside ultrasound revealed an active fetus with a heart rate of 140-151 Patient felt reassured and was comfortable with plan for discharge home continued outpatient follow-up with seafood service team member - Lab Data Result diagrams: 04/20/21 15:22 04/20/21 15:22 Lab Results 04/20/21 04/20/21 04/20/21 Range/Units 15:22 15:22 15:22 WBC 9.2 (3.8-10.6) k/uL RBC 4.57 (3.80-5.40) m/uL Hgb 13.7 (11.4-16.0) gm/dL Hct 39.4 (34.0-46.0) % MCV 86.1 (80.0-100.0) fL MCH 30.0 (25.0-35.0) pg MCHC 34.9 (31.0-37.0) g/dL RDW 11.9 (11.5-15.5) % Plt Count 217 (150-450) k/uL MPV 7.6 Neutrophils % 63 % Lymphocytes % 26 % Monocytes % 6 % Eosinophils % 2 % Basophils % 1 % Neutrophils # 5.8 (1.3-7.7) k/uL Lymphocytes # 2.4 (1.0-4.8) k/uL Monocytes # 0.5 (0-1.0) k/uL Eosinophils # 0.2 (0-0.7) k/uL Basophils # 0.0 (0-0.2) k/uL Sodium 136 L (137-145) mmol/L Potassium 3.8 (3.5-5.1) mmol/L Chloride 106 (98-107) mmol/L Carbon Dioxide 23 (22-30) mmol/L Anion Gap 7 mmol/L BUN 8 (7-17) mg/dL Creatinine 0.58 (0.52-1.04) mg/dL Est GFR (CKD-EPI)AfAm >90 (>60 ml/min/1.73 sqM) Est GFR (CKD-EPI)NonAf >90 (>60 ml/min/1.73 sqM) Glucose 83 (74-99) mg/dL Calcium 9.3 (8.4-10.2) mg/dL Total Bilirubin 0.5 (0.2-1.3) mg/dL AST 21 (14-36) U/L ALT 11 (4-34) U/L Alkaline Phosphatase 57 (38-126) U/L C-Reactive Protein 0.7 (<1.0) mg/dL Total Protein 6.0 L (6.3-8.2) g/dL Albumin 3.3 L (3.5-5.0) g/dL Amylase 57 (30-110) U/L Lipase 69 (23-300) U/L Urine Color Light Yellow Urine Appearance Clear (Clear) Urine pH 6.5 (5.0-8.0) Ur Specific Centre 1.007 (1.001-1.035) Urine Protein Negative (Negative) Urine Glucose (UA) Negative (Negative) Urine Ketones Negative (Negative) Urine Blood Negative (Negative) Urine Nitrite Negative (Negative) Urine Bilirubin Negative (Negative) Urine Urobilinogen <2.0 (<2.0) mg/dL Ur Leukocyte Esterase Small H (Negative) Urine RBC <1 (0-5) /hpf Urine WBC 3 (0-5) /hpf Ur Squamous Epith Cells 1 (0-4) /hpf Urine Bacteria Occasional H (None) /hpf Urine Mucus Rare H (None) /hpf Disposition Clinical Impression: Abdominal pain affecting Disposition: HOME SELF-CARE Condition: Stable Instructions (If sedation given, give patient instructions): Abdominal Pain in (ED) Is patient prescribed a controlled substance at d/c from ED?: No Referrals: None,Stated [Primary Care Provider] - 1-2 days
[2021-04-20 15:36] LABS: Basophils % (A) 1 %; Eosinophils # (A) 0.2 k/uL (0-0.7); Eosinophils % (A) 2 %; HCT 39.4 % (34.0-46.0); HGB 13.7 gm/dL (11.4-16.0); Lymphocytes # (A) 2.4 k/uL (1.0-4.8); Lymphocytes % (A) 26 %; MCHC 34.9 g/dL (31.0-37.0); MCV 86.1 fL (80.0-100.0); Mean Platelet Volume 7.6; Monocytes # (A) 0.5 k/uL (0-1.0); Monocytes % (A) 6 %; Neutrophils # (A) 5.8 k/uL (1.3-7.7); Neutrophils % (A) 63 %; Platelet Count 217 k/uL (150-450); RBC 4.57 m/uL (3.80-5.40); RDW 11.9 % (11.5-15.5); WBC 9.2 k/uL (3.8-10.6)
[2021-04-20 15:37] LABS: Appearance,Urine Clear (Clear); Bacteria,Urine Occasional /hpf; Bilirubin,Urine Negative (Negative); Blood,Urine Negative (Negative); Color,Urine Light Yellow; Glucose,Urine (UA) Negative (Negative); Ketones,Urine Negative (Negative); Leukocyte Esterase,Urine Small (Negative); Mucus,Urine Rare /hpf; Nitrite,Urine Negative (Negative); PH, Urine 6.5 (5.0-8.0); Protein,Urine Negative (Negative); RBC,Urine <1 /hpf (0-5); Specific Gravity,Urine 1.007 (1.001-1.035); Squamous Epithelial Cell,Urine 1 /hpf (0-4); Urobilinogen,Urine <2.0 mg/dL (<2.0); WBC,Urine 3 /hpf (0-5)
[2021-04-20 16:17] LABS: ALT 11 U/L (4-34); AST 21 U/L (14-36); African American GFR (CKD) >90 (>60 ml/min/1.73 sqM); Albumin 3.3 g/dL (3.5-5.0); Alkaline Phosphatase 57 U/L (38-126); Amylase 57 U/L (30-110); Anion Gap 7 mmol/L; Blood Urea Nitrogen 8 mg/dL (7-17); C Reactive Protein 0.7 mg/dL (<1.0); Calcium 9.3 mg/dL (8.4-10.2); Carbon Dioxide 23 mmol/L (22-30); Chloride 106 mmol/L (98-107); Glucose 83 mg/dL (74-99); Lipase 69 U/L (23-300); Non-African American GFR(CKD) >90 (>60 ml/min/1.73 sqM); Potassium 3.8 mmol/L (3.5-5.1); Sodium 136 mmol/L (137-145); Total Bilirubin 0.5 mg/dL (0.2-1.3)
--- NOTE | 2021-04-20 17:03 | US ---
EXAMINATION TYPE: US abdomen APPY DATE OF EXAM: 04/20/2021 COMPARISON: NONE CLINICAL HISTORY: RLQ pain. APPENDIX RLQ scanned at area of appendix. Appendix not visualized, no obvious inflammatory process. IMPRESSION: Non-visualized appendix.
--- NOTE | 2021-04-20 17:06 | US ---
EXAMINATION TYPE: US abdomen limited DATE OF EXAM: 04/20/2021 COMPARISON: NONE CLINICAL HISTORY: RLQ pain. RUQ pain EXAM MEASUREMENTS: Liver Length: 12.4 cm Gallbladder Wall: 0.4 cm CBD: 0.4 cm Right Kidney: 11.0 x 5.6 x 5.2 cm Pancreas: Partially obscured by bowel gas, portions visualized wnl Liver: wnl Gallbladder: gallbladder contracted, wall measures thick and there is an echogenic foci seen fundall y Evidence for sonographic Lopez's sign: no CBD: wnl Right Kidney: Hyperechoic appearance of the pyramids. No hydronephrosis. IMPRESSION: Contracted gallbladder with possible gallstone. Nonspecific hyperechoic pyramids. Recommend clinical and laboratory correlation Otherwise no sonographic evidence for acute abnormality.
[2021-04-20 17:16] VITALS: BP 101/60; TEMP 98
[2021-04-20 17:48] VITALS: PULSE 60; RESP 18
== END 2021-04-20 17:50 | disposition home or self-care (01) ==
LOC: EC 14:19
DX: O26.892 Other specified pregnancy related conditions, second trimester (principal); R10.11 Right upper quadrant pain; R10.31 Right lower quadrant pain; R11.0 Nausea; Z3A.16 16 weeks gestation of pregnancy
CPT/HCPCS: 36415; 76705; 80053; 81001; 82150; 83690; 85025; 86140; 99284

== ENCOUNTER 2021-05-30 06:50 | Outpatient (CLI) | payer BC ==
[2021-05-30 07:25] LABS: Appearance,Urine Clear (Clear); Bilirubin,Urine Negative (Negative); Blood,Urine Negative (Negative); Color,Urine Colorless; Glucose,Urine (UA) Negative (Negative); Ketones,Urine Negative (Negative); Leukocyte Esterase,Urine Negative (Negative); Nitrite,Urine Negative (Negative); PH, Urine 6.5 (5.0-8.0); Protein,Urine Negative (Negative); Specific Gravity,Urine 1.002 (1.001-1.035); Urobilinogen,Urine <2.0 mg/dL (<2.0)
[2021-05-30 08:21] VITALS: BP 107/60; PULSE 72; RESP 17; TEMP 97.2
--- NOTE | 2021-06-07 07:33 | P.MSEPDOC ---
Presenting Problems - Arrival Data Date of Arrival on Unit: 05/30/21 Time of Arrival on Unit: 06:50 Mode of Transport: Ambulatory - Complaint OB-Reason for Admission/Chief Complaint: Possible Onset of Labor, Pain Comment: pt stated she was having contractions all weekend but getting more intense this am Medical History - Information : 3 Para: 2 Term: 2 : 0 Abortions: Spontaneous or Elective: 0 Number of Living Children: 2 - Gestational Age Gestational Age by PERLITA (wks/days): 22 Weeks and 3 Days Review of Systems - Review of Systems Constitutional: No problems Breast: No problems ENT: No problems Cardiovascular: No problems Respiratory: No problems Gastrointestinal: No problems Genitourinary: No problems Musculoskeletal: No problems Neurological: No problems Skin: No problems Vital Signs - Temperature Temperature: 97.2 F Temperature Source: Temporal Artery Scan - Pulse Right Brachial Pulse Rate: 72 Pulse Assessment Method: Automatic Cuff - Respirations Respiratory Rate: 17 Oxygen Delivery Method: Room Air - Blood Pressure Right Arm Blood Pressure: 107/60 Blood Pressure Mean: 75 Blood Pressure Source: Automatic Cuff Medical Screen Scoring - Cervical Exam Dilation (cm): 0 Effacement (%): 0 Station: -4 Membranes: Intact - Uterine Contractions Frequency From (mins): 0 Frequency To (mins): 0 - Assessment - Baby A Baseline FHR: 142 Physician Notification - Physician Notified Physician Notified Date: 05/30/21 Physician Notified Time: 07:00 Physician: Cruz Rodriguez New Order Received: Yes - Notification Comment Comment: Dr. Luna notified of positive FFN results Maternal Triage Index - Maternal Triage Index Presenting for scheduled procedure w/no complaint: No - Stat/Priority 1 Stat Priority 1: No - Urgent/Priority 2 Urgent Priority 2: Yes Provider Notified: Cruz Rodriguez Provider Notified Time: 07:00 Criteria Met for Priority 2: pt c/o contractions, although not tracing on monitor, abd soft to palpation Disposition - Disposition OB Disposition: Triage, Discharge to home, Written follow up instructions reviewed Discharge Date: 05/30/21 Discharge Time: 08:00 I agree with the RN Medical Screening Exam: Yes Case reviewed; plan agreed upon as documented in EMR&OBIX.: Yes Diagnosis: FALSE LABOR BEFORE 37 COMPLETED WEEKS OF GEST, SECOND TRI
== END 2021-05-30 08:00 | disposition home or self-care (01) ==
LOC: FBPOP 06:50
PROVIDERS: ATTEND Obstetrics & Gynecology
DX: O47.02 False labor before 37 completed weeks of gestation, second trimester (principal); Z3A.22 22 weeks gestation of pregnancy
CPT/HCPCS: 81003; 82731; 99213

== ENCOUNTER → 2021-06-17 | Outpatient (CLI) | payer BC ==
[2021-06-17 22:35] LABS: HCT 38.5 % (37.2-46.3); HGB 12.5 g/dL (12.0-15.0); MCH 29.3 pg (27.0-32.0); MCHC 32.5 g/dL (32.0-37.0); MCV 90.2 fL (80.0-97.0); Platelet Count 280 X 10*3/uL (140-440); RBC 4.27 X 10*6/uL (4.10-5.20); RDW 12.6 % (11.5-14.5); WBC 9.83 X 10*3/uL (4.50-10.00)
== END | disposition home or self-care (01) ==
LOC: LABWHC1 14:50
PROVIDERS: ATTEND Obstetrics & Gynecology
DX: Z34.82 Encounter for supervision of other normal pregnancy, second trimester (principal)
CPT/HCPCS: 36415; 82950; 85027

== ENCOUNTER → 2021-06-28 | Outpatient (CLI) | payer BC ==
[2021-06-28 14:27] LABS: Glucose 3 Hour, Gest 85 mg/dL
== END | disposition home or self-care (01) ==
LOC: LABWHC1 09:09
PROVIDERS: ATTEND Obstetrics & Gynecology
DX: O99.810 Abnormal glucose complicating pregnancy (principal); Z3A.00 Weeks of gestation of pregnancy not specified
CPT/HCPCS: 36415; 82951; 82952

== ENCOUNTER 2021-08-16 17:44 | Outpatient (CLI) | payer BC ==
[2021-08-16 18:38] VITALS: BP 113/73; PULSE 78; RESP 18; TEMP 97
--- NOTE | 2021-08-31 07:18 | P.MSEPDOC ---
Presenting Problems - Arrival Data Date of Arrival on Unit: 08/16/21 Time of Arrival on Unit: 17:50 Mode of Transport: Ambulatory - Complaint OB-Reason for Admission/Chief Complaint: Vaginal Bleeding Comment: ? vag bleeding, pos rectal bleeding, ? contractions Medical History - Information : 3 Para: 2 Term: 2 : 0 Abortions: Spontaneous or Elective: 0 Number of Living Children: 2 - Gestational Age Gestational Age by PERLITA (wks/days): 33 Weeks and 2 Days Review of Systems - Review of Systems Constitutional: No problems Breast: No problems ENT: No problems Cardiovascular: No problems Respiratory: No problems Gastrointestinal: No problems Genitourinary: No problems Musculoskeletal: No problems Neurological: No problems Skin: No problems Vital Signs - Temperature Temperature: 97.0 F Temperature Source: Temporal Artery Scan - Pulse Right Sitting Brachial Pulse Rate: 78 Pulse Assessment Method: Automatic Cuff - Respirations Respiratory Rate: 18 Oxygen Delivery Method: Room Air O2 Sat by Pulse Oximetry: 100 - Blood Pressure Right Arm Sitting Blood Pressure: 113/73 Blood Pressure Mean: 86 Blood Pressure Source: Automatic Cuff Medical Screen Scoring - Cervical Exam Dilation (cm): 1 Effacement (%): 0 Station: -2 Membranes: Intact - Assessment - Baby A Baseline FHR: 130 Heart Rate - NICHD Category: Category I (Normal) NST: Reactive Physician Notification - Physician Notified Physician Notified Date: 08/16/21 Physician Notified Time: 18:30 Physician: Brittney Lemus Order Received: Yes - Notification Comment Comment: ok to dc home. Follow up with Dr Luna in the office as scheduled. Maternal Triage Index - Maternal Triage Index Presenting for scheduled procedure w/no complaint: No - Stat/Priority 1 Stat Priority 1: No - Urgent/Priority 2 Urgent Priority 2: No - Prompt/Priority 3 Prompt Priority 3: Yes Criteria Met for Priority 3: amnisure neg. FFN collected and held. No vag bleeding noted. NST reactive. No cervical change from previous exams. - Non-Urgent/Priority 4 Non-Urgent Priority 4: No Disposition - Disposition OB Disposition: Discharge to home Discharge Date: 08/16/21 Discharge Time: 18:35 I agree with the RN Medical Screening Exam: Yes Case reviewed; plan agreed upon as documented in EMR&OBIX.: Yes Diagnosis: ANTEPARTUM HEMORRHAGE, UNSPECIFIED, THIRD TRIMESTER
== END 2021-08-16 18:35 | disposition home or self-care (01) ==
LOC: FBPOP 17:44
PROVIDERS: ATTEND Obstetrics & Gynecology
DX: O46.93 Antepartum hemorrhage, unspecified, third trimester (principal); Z3A.33 33 weeks gestation of pregnancy
CPT/HCPCS: 59025; 84112; 99213

== ENCOUNTER → 2021-09-19 | Outpatient (CLI) | payer BC ==
[2021-09-19 14:52] VITALS: BP 107/59; PULSE 110; RESP 18; TEMP 97.7
--- NOTE | 2021-09-30 11:55 | P.MSEPDOC ---
Presenting Problems - Arrival Data Date of Arrival on Unit: 09/19/21 Time of Arrival on Unit: 09:05 Mode of Transport: Ambulatory - Complaint OB-Reason for Admission/Chief Complaint: Possible Onset of Labor, Rule Out PROM Comment: Possible ROM at 1am, Q5min Cxns Medical History - Information : 3 Para: 2 Term: 2 : 0 Abortions: Spontaneous or Elective: 0 Number of Living Children: 2 - Gestational Age Gestational Age by PERLITA (wks/days): 38 Weeks and 1 Days Review of Systems - Review of Systems Constitutional: No problems Breast: No problems ENT: No problems Cardiovascular: No problems Respiratory: No problems Gastrointestinal: No problems Genitourinary: No problems Musculoskeletal: No problems Neurological: No problems Skin: No problems Vital Signs - Temperature Temperature: 97.7 F Temperature Source: Oral - Pulse Right Pulse Rate: 110 Pulse Assessment Method: Automatic Cuff - Respirations Respiratory Rate: 18 Oxygen Delivery Method: Room Air O2 Sat by Pulse Oximetry: 97 - Blood Pressure Right Arm Blood Pressure: 107/59 Blood Pressure Mean: 75 Blood Pressure Source: Automatic Cuff Medical Screen Scoring - Cervical Exam Dilation (cm): 2 Effacement (%): 50 Station: -2 Membranes: Intact - Uterine Contractions Intensity: Mild Resting: Soft to palpation - Assessment - Baby A Baseline FHR: 135 Heart Rate - NICHD Category: Category I (Normal) Physician Notification - Physician Notified Physician Notified Date: 09/19/21 Physician Notified Time: 11:15 Physician: Cruz Rodriguez Order Received: Yes - Notification Comment Comment: Pt here with c/o cxns since 1am, possible ROM around 1am. Clear mucous discharge. Pt went to work this AM, states that the leaking is continuing. Contractions about 5mins apart per patient. Rating pain at a 6/10 during contraction. No other complaints, no complications during . Reported to Dr. Rodriguez pt's c/o cxns and possible ROM. Amnisure negative. Cervix unchanged. Pt may DC home and follow up with Dr. Luna as previously Scheduled. . Maternal Triage Index - Maternal Triage Index Presenting for scheduled procedure w/no complaint: No - Stat/Priority 1 Stat Priority 1: No - Urgent/Priority 2 Urgent Priority 2: No - Prompt/Priority 3 Prompt Priority 3: No - Non-Urgent/Priority 4 Non-Urgent Priority 4: Yes Criteria Met for Priority 4: >37wks c/o possible ROM, Cxns Q5min Disposition - Disposition OB Disposition: Discharge to home Discharge Date: 09/19/21 Discharge Time: 11:25 I agree with the RN Medical Screening Exam: Yes Case reviewed; plan agreed upon as documented in EMR&OBIX.: Yes Diagnosis: FALSE LABOR AT OR AFTER 37 COMPLETED WEEKS OF GESTATION
== END | disposition home or self-care (01) ==
LOC: FBPOP 09:05
PROVIDERS: ATTEND Obstetrics & Gynecology
DX: O47.1 False labor at or after 37 completed weeks of gestation (principal); Z3A.38 38 weeks gestation of pregnancy
CPT/HCPCS: 59025; 84112; 99213

== ENCOUNTER 2021-09-29 05:57 | Inpatient (IN) | payer BC ==
--- NOTE | 2021-09-28 07:53 | P.HPOB ---
History of Present Illness H&P Date: 09/28/21 Chief Complaint: Requested induction of labor. This patient is a pleasant 31 yr old with EDC 10/02/2022 estimated age 39 and 4/7 weeks who presents for requested induction of labor. care was complicated by an EIF at 19wks. Patient was referred to [facility] and this subsequently resolved. She also had a positive FFN at 22 wks, but no labor. Patient is uncomfortable and now requesting delivery. Review of Systems Genitourinary: Reports Menstruation: Reports amenorrhea Past Medical History Past Medical History: No Reported History Additional Past Medical History / Comment(s): Ovarian cysts History of Any Multi-Drug Resistant Organisms: None Reported Past Surgical History: Orthopedic Surgery Additional Past Surgical History / Comment(s): LAPAROTOMY, with evacuation of hemoperitoneum and repair of right ovary in September 2014 Past Anesthesia/Blood Transfusion Reactions: Motion Sickness, Postoperative Nausea & Vomiting (PONV) Past Psychological History: No Psychological Hx Reported Smoking Status: Former smoker Past Alcohol Use History: None Reported Past Drug Use History: None Reported - Past Family History Father Family Medical History: No Reported History Mother Family Medical History: No Reported History Medications and Allergies Home Medications Medication Instructions Recorded Confirmed Type Pnv No.95/Ferrous Fum/Folic AC 1 tab PO DAILY 05/14/19 08/16/21 History [ Multivitamin Tablet] Allergies Allergy/AdvReac Type Severity Reaction Status Date / Time No Known Allergies Allergy Verified 09/19/21 09:37 Exam - OBG Physical Exam Abdomen: bowel sounds normal, no diffuse tenderness, no bruit present, no guarding noted, no hepatomegaly, no splenomegaly, no mass Vulva: both: normal Vagina: normal moisture, no discharge Cervix: no lesion (Cervix is 2cm/soft), no discharge Uterus: enlarged (Fundal height is 38 cm) Results labs: O positive, Rubella Immune, YVH-[id number]-SPM neg, Glucola 137 with normal 3hr GTT. Ultrasound on 09/01 shows EFW 6#1oz (50%). GBS was negative Assessment and Plan Assessment: This is a pleasant 31 yr female 39 4/7 weeks gestation with maternal discomfort requesting induction of labor. Plan is induction of labor and anticipate vaginal delivery. (1) 39 weeks gestation of Status: Acute Code(s): Z3A.39 - 39 WEEKS GESTATION OF SNOMED Code(s): 18255104 (2) Elective induction of labor planned Status: Acute Code(s): RPB8087 - SNOMED Code(s): 452072600
[2021-09-29] MEDS ORDERED: OXYTOCIN 30 UNITS/500 ML NS 30 UNIT in SALINE 1 500ML.BAG IV SCH ×2 (06:11→12:08)
[2021-09-29] MEDS ORDERED: TERBUTALINE 1 MG/ML VIAL SQ PRN (06:11)
[2021-09-29] MEDS ORDERED: LACTATED RINGERS 1,000 ML IV SCH (06:11)
[2021-09-29] MEDS ORDERED: METHYLERGONOVINE 0.2 MG/ML 1 ML AMP IM PRN (06:11)
[2021-09-29] MEDS ORDERED: LIDOCAINE 0.5% (PF) 5 MG/ML (50 ML SDV) SQ PRN (06:11)
[2021-09-29] MEDS ORDERED: CARBOPROST TROMETHAMINE 250 MCG/ML 1 ML AMP IM PRN (06:11)
[2021-09-29] MEDS ORDERED: OXYTOCIN 10 UNIT/ML 1 ML VIAL IM PRN (06:11)
[2021-09-29 06:32] LABS: Basophils % (A) 0 %; Eosinophils # (A) 0.1 k/uL (0-0.7); Eosinophils % (A) 1 %; HCT 35.9 % (34.0-46.0); HGB 11.8 gm/dL (11.4-16.0); Lymphocytes # (A) 2.2 k/uL (1.0-4.8); Lymphocytes % (A) 23 %; MCH 27.8 pg (25.0-35.0); MCV 84.3 fL (80.0-100.0); Monocytes # (A) 0.5 k/uL (0-1.0); Monocytes % (A) 5 %; Neutrophils # (A) 6.5 k/uL (1.3-7.7); Neutrophils % (A) 69 %; Platelet Count 331 k/uL (150-450); RBC 4.26 m/uL (3.80-5.40); RDW 12.8 % (11.5-15.5); WBC 9.4 k/uL (3.8-10.6)
[2021-09-29] MEDS ORDERED: HYDROCORTISONE 2.5% RECTAL CREAM 30 GM TUBE RECTAL PRN (12:08)
[2021-09-29] MEDS ORDERED: IBUPROFEN 600 MG TAB PO PRN (12:08)
[2021-09-29] MEDS ORDERED: LANOLIN CREAM 5 GM TUBE TOPICAL PRN (12:08)
[2021-09-29] MEDS ORDERED: diphenhydrAMINE 50 MG/ML 1 ML VIAL IVP PRN (12:08)
[2021-09-29] MEDS ORDERED: SIMETHICONE 80 MG CHEWABLE PO PRN (12:08)
[2021-09-29] MEDS ORDERED: diphenhydrAMINE 25 MG CAP PO PRN (12:08)
[2021-09-29] MEDS ORDERED: BENZOCAINE/MENTHOL SPRAY 1 GM/SPRAY AEROSOL TOPICAL PRN (12:08)
[2021-09-29] MEDS ORDERED: ZOLPIDEM 5 MG TAB PO PRN (12:08)
[2021-09-29] MEDS ORDERED: ACETAMINOPHEN TAB 325 MG TAB PO PRN (12:08)
[2021-09-29] MEDS ORDERED: bisacodyL 10 MG SUPP RECTAL PRN (12:08)
--- NOTE | 2021-09-29 12:12 | P.PROBDLV ---
Vaginal Delivery Note - . Vaginal Delivery Note: Normal vaginal delivery viable male Apgars 9 and 9 delivery time is 1157 hrs. Please see dictated H&P for intimate details of this patient's admission. Brief summary this is a pleasant 31-year-old 4 para 2 female 39-4/7 weeks who is admitted to labor and delivery for requested induction of labor. Patient is 2 cm dilated on arrival and has Pitocin augmentation of labor. Artificial rupture membranes is done for clear fluid. Patient's labor progresses quickly and she does not request anything for pain control. Patient gets to complete pushes the head to the perineum. Posterior perineum is supported. We have controlled delivery of infant's head over the intact perineum. Mouth and nares are bulb suctioned. The infant's head is straight occiput anterior presentation. There is no evidence of a nuchal cord. With gentle downward traction we then have deliver the anterior and posterior shoulder and rest this 's body. This is a vigorous viable male infant Apgars are 9 and 9 delivery time was 1157 hrs. After delivery of the the infant's cord is allowed to quit pulsating then doubly clamped and cut. The placenta is then spontaneously delivered intact. Estimated blood loss is 150 mL. There are superficial periurethral lacerations otherwise no lacerations are noted and no repairs required. All counts are correct 3. There are no complications. Infant and mother stable delivery room.
[2021-09-29] MEDS: SENNOSIDES-DOCUSATE SODIUM 1 EACH TAB PO SCH ×2 (12:22→20:30)
[2021-09-29 18:10] VITALS: RESP 16
--- NOTE | 2021-09-30 06:24 | P.PNOBGVD ---
Subjective - Subjective Patient reports: Reports appetite normal, Reports voiding normally, Reports pain well controlled, Reports ambulating normally : doing well Objective - Latest Vital Signs Latest vital signs: Vital Signs Temp Pulse Resp BP 09/30/21 00:00 97.9 F 79 16 102/67 09/29/21 20:00 98.6 F 92 16 101/66 09/29/21 18:00 98.4 F 72 16 114/68 09/29/21 14:09 98.5 F 74 17 112/72 09/29/21 13:39 74 17 117/73 09/29/21 13:09 75 16 113/65 09/29/21 12:54 82 17 116/65 09/29/21 12:39 75 17 110/62 09/29/21 12:24 86 17 119/62 09/29/21 12:09 98.1 F 86 17 112/55 Intake and Output 09/29/21 09/29/21 09/30/21 14:59 22:59 06:59 Intake Total 167 Output Total 150 Balance 17 Intake: Intake, IV Titration 167 Amount Oxytocin 30 Units/500 ml 167 Ns 30 unit In Saline 1 500ml.bag @ Per Protocol IV .Q0M BRICE Rx#:[id number] Output: Estimated Blood Loss 150 Other: # Voids 1 1 1 - Exam Lungs: bilateral: normal Chest: Normal S1, Normal S2 Extremities: Present: normal Abdomen: Present: normal appearance, soft Uterus: Present: normal, firm Assessment and Plan Assessment: day #1. Patient is resting without complaints and wishes to go home. Uterus is firm nontender she's having normal lochia. My impression is a normal course. Plan is to continue routine care discharge home later today. (1) 39 weeks gestation of Current Visit: No Status: Acute Code(s): Z3A.39 - 39 WEEKS GESTATION OF SNOMED Code(s): 70158858 (2) Elective induction of labor planned Current Visit: No Status: Acute Code(s): OZH5653 - SNOMED Code(s): 538873415
--- NOTE | 2021-09-30 06:27 | P.DS ---
Providers Date of admission: 09/29/21 05:57 Expected date of discharge: 09/30/21 Attending physician: Boone Luna Primary care physician: Stated None - Discharge Diagnosis(es) (1) 39 weeks gestation of Current Visit: No Status: Acute (2) Elective induction of labor planned Current Visit: No Status: Acute Hospital Course: Please see dictated H&P for intimate details of this patient's admission. In brief summary this is a pleasant 31-year-old 4 para 2 female 39-4/7 weeks gestation who is admitted to labor and delivery for requested induction of labor. Patient is admitted has uncomplicated induction of labor quickly goes on to have a vaginal delivery viable male infant. Please see dictated delivery note. day #1 patient without complaints she wishes to go home. Patient's felt be stable for discharge home follow up with me in 6 weeks. Procedures: Induction of labor and normal vaginal delivery Patient Condition at Discharge: Good Plan - Discharge Summary New Discharge Prescriptions: New Ibuprofen [Motrin] 600 mg PO Q6HR PRN #30 tab PRN Reason: Pain No Action Pnv No.95/Ferrous Fum/Folic AC [ Multivitamin Tablet] 1 tab PO DAILY Discharge Medication List Pnv No.95/Ferrous Fum/Folic AC [ Multivitamin Tablet] 1 tab PO DAILY 05/14/19 [History] Ibuprofen [Motrin] 600 mg PO Q6HR PRN #30 tab 09/30/21 [Rx] Follow up Appointment(s)/Referral(s): Boone Luna MD [STAFF PHYSICIAN] - 11/08/21 3:45 pm Patient Instructions/Handouts: Vaginal Delivery (DC) Activity/Diet/Wound Care/Special Instructions: No intercourse or anything per vagina for 6 weeks. Please call if any fever, chills, excessive vaginal bleeding, and/or abdominal pain. Discharge Disposition: HOME SELF-CARE
[2021-09-30] MEDS: SENNOSIDES-DOCUSATE SODIUM 1 EACH TAB PO SCH (07:48)
[2021-09-30 08:55] VITALS: BP 114/64; PULSE 86; TEMP 97.4
== END 2021-09-30 14:30 | disposition home or self-care (01) | DRG 807 ==
LOC: 4FBP 05:57
PROVIDERS: ADMIT Obstetrics & Gynecology; ATTEND Obstetrics & Gynecology
PROC: 10E0XZZ Delivery of Products of Conception, External Approach (ICD-10-PCS; principal; 2021-09-29)
PROC: 3E033VJ Introduction of Other Hormone into Peripheral Vein, Percutaneous Approach (ICD-10-PCS; 2021-09-29)
PROC: 10907ZC Drainage of Amniotic Fluid, Therapeutic from Products of Conception, Via Natural or Artificial Opening (ICD-10-PCS; 2021-09-29)
DX: O71.82 Other specified trauma to perineum and vulva (principal); Z37.0 Single live birth; Z3A.39 39 weeks gestation of pregnancy; Z87.891 Personal history of nicotine dependence
CPT/HCPCS: 85025; 86850; 86900; 86901